=== PATIENT | male | born 1970 | race Hispanic/Latino ===

== ENCOUNTER 2016-10-15 12:35 | Emergency (ER) | payer SELFPAY ==
[2016-10-15 13:14] LABS: Basophils % (Auto) 0.5 % (0.0-1.8); Eosinophils % (Auto) 1.4 % (0.0-4.3); Hematocrit 45.3 % (35.5-45.6); Hemoglobin 15.3 gm/dl (11.8-15.2); Mean Corpuscular HGB Conc 34 % (32-34); Mean Corpuscular Hemoglobin 29 pg (28-32); Mean Corpuscular Volume 87 fl (84-94); Platelet Count 285 K/mm3 (140-440); Red Blood Count 5.21 M/mm3 (3.65-5.03); Red Cell Distribution Width 13.3 % (13.2-15.2)
[2016-10-15 13:31] LABS: Alanine Aminotransferase 17 units/L (7-56); Albumin 3.9 g/dL (3.9-5); Albumin/Globulin Ratio 1.1 %; Alkaline Phosphatase 67 units/L (35-129); BUN/Creatinine Ratio 13.75; Blood Urea Nitrogen 11 mg/dL (9-20); Calcium 8.8 mg/dL (8.4-10.2); Carbon Dioxide 23 mmol/L (22-30); Glucose 131 mg/dL (75-100); Lipase 16 units/L (13-60); Total Protein 7.3 g/dL (6.3-8.2)
[2016-10-15 13:32] LABS: Anion Gap 19 mmol/L; Chloride 98.9 mmol/L (98-107); Potassium 3.7 mmol/L (3.6-5.0); Sodium 137 mmol/L (137-145)
[2016-10-15 13:59] LABS: Bacteria,Urine 2+ /HPF (Negative); Bilirubin,Urine NEG (Negative); Blood,Urine MOD (Negative); Ketones,Urine NEG (Negative); Leukocyte Esterase,Urine LG (Negative); Mucus,Urine 3+ /HPF; Nitrite,Urine NEG (Negative)
[2016-10-15 14:02] LABS: WBC,Urine > 182.0 /HPF (0.0-6.0)
--- NOTE | 2016-10-15 14:02 | Ultrasound Report ---
Testicular ultrasound: History: 2 day pain in left testicle. The right testicle measures 2 x 2 0.8 x 5 cm. It is echogenically unremarkable. Normal flow pattern. There is a small cyst in an otherwise normal epididymis. There is a small hydrocele. The left testicle measures 2.3 x 2.8 x 4.4 cm. The testicle is echogenically unremarkable. Normal flow pattern. The epididymis is diffusely thickened with increased flow by color imaging. There is increased venous flow with Valsalva consistent with varicocele. Moderate hydrocele. Impressions: 1. Left epididymitis. 2. Mild left varicocele. 3. Bilateral hydroceles greater on left than right.
[2016-10-15 14:44] VITALS: BP 128/85
[2016-10-15] MEDS ORDERED: ROCEPHIN/NS 1 GM/50 ML 1 GM/50 ML BAG IV ONE (14:49)
[2016-10-15] MEDS ORDERED: NACL 0.9% 1000 ML 1,000 ML IV ONE (14:49)
[2016-10-15] MEDS ORDERED: NACL ONE ×2 (15:31→16:19)
[2016-10-15] MEDS ORDERED: ROCEPHIN IM ONE (16:05)
[2016-10-15] MEDS ORDERED: ZOFRAN PO ONE (16:05)
[2016-10-15] MEDS ORDERED: ZITHROMAX PO ONE (16:05)
[2016-10-15] MEDS ORDERED: XYLOCAINE 1% MPF 5 mL INFILTRATI ONE (16:05)
--- NOTE | 2016-10-15 16:47 | Cat Scan Report ---
CT abdomen and pelvis with contrast: Abdominal pain. Following IV contrast sections are obtained from the low chest to the ischium with coronal and sagittal 2-D reformatted images. The visualized lungs are unremarkable. The abdominal and retroperitoneal structures appear normal. Abdominal aorta is unremarkable. No adenopathy noted. The opacified bowel and mesentery appear normal. The appendix is not identified. No inflammatory changes noted. No free fluid. Bilateral fat containing inguinal hernias are present. Mild prostatic enlargement with calcification. Diffuse lower thoracic and lumbar spondylosis. There is discogenic collapse at L3-4 with significant narrowing also at L2-3 and L5-S1 levels. Impressions: No acute finding. Several incidental findings as detailed above.
[2016-10-15] MEDS ORDERED: ZOFRAN ODT PO ONE (17:00)
--- NOTE | 2016-10-15 18:04 | Emergency Department Report ---
ED Abdominal Pain HPI - General Chief Complaint: Abdominal Pain Stated Complaint: POSS HERNIA/GROIN PAIN/ABD PAIN Time Seen by Provider: 10/15/16 14:49 Source: patient Mode of arrival: Ambulatory Limitations: No Limitations - History of Present Illness Initial Comments: Reports that his partner recently diagnoses with Gonorrhea Complaint: abdominal pain (left lower abdomen) -: Gradual, days(s) Location: LLQ Radiation: other (left testicle) Migration to: no migration Severity: mild Quality: aching Consistency: constant Improves With: nothing Worsens With: movement Associated Symptoms: dysuria. denies: nausea, vomiting, diarrhea, fever, chills , constipation, hematemesis, hematochezia, melena, hematuria, anorexia, syncope - Related Data Home Medications Medication Instructions Recorded Confirmed Last Taken Enalapril Maleate [Vasotec] 20 mg PO DAILY 10/15/16 10/15/16 10/15/16 Ibuprofen [Advil 100 MG tab] 200 mg PO Q6H PRN 10/15/16 10/15/16 10/15/16 amLODIPine [Norvasc] 10 mg PO DAILY 10/15/16 10/15/16 10/15/16 glipiZIDE [glipiZIDE XL] 5 mg PO DAILY 10/15/16 10/15/16 10/15/16 metFORMIN [Glucophage] 500 mg PO BID 10/15/16 10/15/16 10/15/16 Previous Rx's Medication Instructions Recorded Last Taken Type Doxycycline [Vibramycin CAP] 100 mg PO Q12HR #20 capsule 10/15/16 Unknown Rx Ibuprofen [Motrin] 600 mg PO Q8H PRN #15 tablet 10/15/16 Unknown Rx Allergies Allergy/AdvReac Type Severity Reaction Status Date / Time No Known Allergies Allergy Verified 10/15/16 15:33 ED Review of Systems ROS: Stated complaint: POSS HERNIA/GROIN PAIN/ABD PAIN Other details as noted in HPI Other: GENERAL: No weight change, fatigue, weakness, fever, chills, or night sweats SKIN: No changes in skin or hair, no itching, no rashes, no jaundice HEAD: No trauma, headache, or visual changes EYES: No blurriness, tearing, itching, acute visual loss, conjunctival discoloration, or scleral icterus EARS: No hearing loss, tinnitus, vertigo, or earache NOSE: No rhinorrhea, stuffiness, sneezing, itching, or epistaxis MOUTH: No bleeding gums, hoarseness, sore throat, or swelling CARDIAC: No new murmur, chest pain, palpitations, dyspnea on exertion, orthopnea , PND, or edema RESPIRATORY: No shortness of breath, wheeze, cough, sputum production, hemoptysis, pneumonia, asthma, bronchitis, or emphysema GI: abdominal pain URINARY: left testicle swelling and pain MUSCULOSKELETAL: No muscle weakness, joint stiffness, decrease in range of motion, redness, swelling, tenderness NEUROLOGIC: No loss of sensation, numbness, tingling, tremors, weakness, paralysis, seizures HEMATOLOGIC: No anemia, easy bruising, bleeding, petechiae, or purpura ENDOCRINE: No hot or cold intolerance, sweating, polyuria, polydipsia or, polyphagia no thyroid problems PSYCHIATRIC: No change in mood, no anxiety, no depression ED Past Medical Hx - Past Medical History Hx Hypertension: Yes Hx Diabetes: Yes - Surgical History Past Surgical History?: No Additional Surgical History: TONSIL - Social History Smoking Status: Current Every Day Smoker Substance Use Type: None - Medications Home Medications: Home Medications Medication Instructions Recorded Confirmed Last Taken Type Doxycycline [Vibramycin CAP] 100 mg PO Q12HR #20 capsule 10/15/16 Unknown Rx Enalapril Maleate [Vasotec] 20 mg PO DAILY 10/15/16 10/15/16 10/15/16 History Ibuprofen [Advil 100 MG tab] 200 mg PO Q6H PRN 10/15/16 10/15/16 10/15/16 History Ibuprofen [Motrin] 600 mg PO Q8H PRN #15 tablet 10/15/16 Unknown Rx amLODIPine [Norvasc] 10 mg PO DAILY 10/15/16 10/15/16 10/15/16 History glipiZIDE [glipiZIDE XL] 5 mg PO DAILY 10/15/16 10/15/16 10/15/16 History metFORMIN [Glucophage] 500 mg PO BID 10/15/16 10/15/16 10/15/16 History ED Physical Exam - General Limitations: No Limitations - Other Other exam information: GENERAL: Patient in no acute distress HEAD: Normocephalic, atraumatic EYES: PERRLA, EOM intact, no scleral icterus, no conjunctival hemorrhage, visual blair and acuity wnl, NOSE: No tenderness, discharge, sinus tenderness MOUTH: No erythema, bleeding, exudate HEART: Regular rate and rhythm, no murmur, S1-S2 are auscultated, pulses are symmetric LUNGS: No wheezing, rales, rhonchi, bilateral breath sounds ABDOMEN: Normal bowel sounds, no tenderness, no rebound, no guarding, no masses , no CVA tenderness MUSCULOSKELETAL: Normal joint range of motion, no redness, no swelling, no tenderness NEUROLOGIC: GCS 15, Alert and Oriented x3, Cranial nerves intact, normal sensation, normal strength, normal gait, no cerebellar deficit PSYCHIATRIC: No homicidal or suicidal ideation, no anxiety, no depression, no hallucinations SKIN: Skin is warm and dry, no wounds, no rashes GENITOURINARY: Male: No rashes, ulcers, discharge, no hernia, left scrotal swelling and mild tenderness to palpation ED Course Vital Signs 10/15/16 10/15/16 12:53 14:43 Temperature 98.5 F Pulse Rate 104 H 89 Respiratory 18 16 Rate Blood Pressure 139/86 Blood Pressure 128/85 [Left] O2 Sat by Pulse 100 97 Oximetry ED Medical Decision Making - Lab Data Result diagrams: 10/15/16 13:00 10/15/16 13:00 - Radiology Data Radiology results: report reviewed - Medical Decision Making Patient comfortable. Updated with results. Plan discharge with outpatient follow-up. Patient agrees with plan and will return if symptoms worsen. Critical care attestation.: If time is entered above; I have spent that time in minutes in the direct care of this critically ill patient, excluding procedure time. ED Disposition Clinical Impression: Epididymitis, Abdominal pain in male Disposition: DC-01 TO HOME OR SELFCARE Is pt being admited?: No Condition: Stable Instructions: Epididymitis (ED), Abdominal Pain (ED) Prescriptions: Doxycycline [Vibramycin CAP] 100 mg PO Q12HR #20 capsule Ibuprofen [Motrin] 600 mg PO Q8H PRN #15 tablet PRN Reason: Pain Referrals: PRIMARY CARE, [Primary Care Provider] - 2-3 Days VAHID MANE MD [Staff Physician] - 2-3 Days [facility] [Provider Group] - 2-3 Days Forms: STI Treatment and Prevention Time of Disposition: 18:03
== END 2016-10-15 18:13 | disposition home or self-care (01) ==
LOC: ED 12:35
DX: N45.1 Epididymitis (principal); R10.30 Lower abdominal pain, unspecified; I10 Essential (primary) hypertension; E11.9 Type 2 diabetes mellitus without complications; F17.200 Nicotine dependence, unspecified, uncomplicated
CPT/HCPCS: 36415; 74177; 80053; 81001; 83690; 85025; 93975; 96365; 96372; 99284; J0696; J7030; Q9967; Q0162